=== PATIENT | male | born 1970 | race Caucasian/White ===

== ENCOUNTER 2020-04-27 01:29 | Emergency (ER) | payer OTHER ==
[~2020-04-27] VITALS: Ht 182.9 cm; Wt 116.6 kg
[2020-04-27 01:35] VITALS: Ht 182.9 cm; Wt 116.6 kg
[2020-04-27] MEDS ORDERED: TENORMIN25 MG (01:42)
[2020-04-27 03:49] LABS: UA SPECIFIC GRAVITY 1.025 (1.005-1.035); microscopic required? YES; urine erythrocyte 2+ (NEGATIVE)
[2020-04-27 03:50] LABS: BASOPHIL % 0.7 % (0.2-1.5); PLATELET COUNT 272 x10^3mcL (152-348)
[2020-04-27 04:06] LABS: CALCIUM 8.5 mg/dL (8.5-10.1); CARBON DIOXIDE 21.5 mmol/L (21-32); CHLORIDE SERUM 106 mmol/L (98-107); CREATININE SERUM 1.2 mg/dL (0.7-1.3); GFR1 > 60 mL/min; GLUCOSE SERUM 131 mg/dL (74-106); POTASSIUM SERUM 3.2 mmol/L (3.5-5.1); SODIUM SERUM 141 mmol/L (136-145)
[2020-04-27 04:09] LABS: ALBUMIN 3.7 g/dL (3.4-5.0); ALKALINE PHOSPHATASE 89 U/L (46-116); ALT/SGPT 63 U/L (16-63); AMYLASE 32 U/L (25-115); AST/SGOT 43 U/L (15-37); BILIRUBIN TOTAL 1.1 mg/dL (0.20-1.00); LIPASE 122 IU/L (73-393)
[2020-04-27 04:13] LABS: TOTAL PROTEIN, SERUM 5.8 g/dL (6.4-8.2)
[2020-04-27 05:07] VITALS: BP 121/74
== END 2020-04-27 05:34 | disposition home or self-care (01) ==
LOC: ED 01:29
PROVIDERS: Emergency Medicine
DX: N20.0 Calculus of kidney (principal); N39.0 Urinary tract infection, site not specified; I10 Essential (primary) hypertension
CPT/HCPCS: J1885; J2405; J3010; J7030